=== PATIENT | female | born 1995 | race Caucasian/White ===

== ENCOUNTER 2024-07-09 16:26 | Emergency (ER) | payer MEDICAID, SELFPAY ==
[2024-07-09 16:35] VITALS: BP 115/80; PULSE 64; TEMP 37.3; O2SAT 100; BMI 23.0
--- NOTE | 2024-07-09 16:49 | ED.GENADUL1 ---
HPI HPI - General Adult General Chief complaint: Nausea/Vomiting/Diarrhea Stated complaint: WITHDRAWLING, DIZZY, DEHYDRATED Time Seen by Provider: 07/09/24 16:44 Source: patient Mode of arrival: Wheelchair History of Present Illness HPI narrative: The patient is a 28-year-old female presenting to the emergency department secondary to intractable nausea vomiting and feeling dehydrated. She states that when she moves around she feels dizzy and lightheaded. The patient is currently at [facility] which is a recovery center. She has been there for for the last 5 days. Patient stated that they tried 4 times to get a IV on her and have been unsuccessful. The patient has been receiving Phenergan injections intramuscularly without any success. Patient states that she has been using intravenous fentanyl daily for the last 4 to 5 years. Patient states her discomfort level is severe. Not being able to eat or drink makes it worse. Nothing makes it better. She has not had any blood or bile in her vomit. No black, bloody, tarry stools. No other symptoms or complaints at this time other than feeling dizzy and dehydrated. Related Data Allergies Allergy/AdvReac Type Severity Reaction Status Date / Time No Known Drug Allergies Allergy Verified 07/09/24 16:42 Opioid HPI Opioid Management Most Recent Opioid Data: No Data to Display Review of Systems ROS Narrative 10 Systems were reviewed, and unless noted in the HPI, all other systems are reviewed, unremarkable, or noncontributory. Exam Narrative Exam Narrative: Prior to examining the patient, I have washed with hospital approved and provided Antiseptic [employer] and have also applied gloves.? Prior to touching the patient, I asked for consent to examine the patient.? General: Alert and oriented, well nourished, mild distress. Eye: PERRL, EOMI, normal conjunctiva. HENT: Normocephalic, normal hearing, moist oral mucosa, no scleral icterus, no sinus tenderness. Neck: Supple, non-tender, no carotid bruits, no JVD, no lymphadenopathy. Lungs: Clear to auscultation and percussion, non-labored respiration. Heart: Normal rate, regular rhythm, no murmur, gallop or edema. Abdomen: Soft, non-tender, non-distended, normal bowel sounds, no masses. Musculoskeletal: Normal range of motion and strength, no tenderness or swelling. Skin: Skin is warm, dry and pink, no rashes or lesions. Numerous bruises of various stages of healing all over the bilateral upper extremities. Neurologic: Awake, alert, and oriented X3, CN II-XII intact. Psychiatric: Cooperative, appropriate mood and affect.? Following the conclusion of the examination, I have washed my hands thoroughly after removing examination gloves. Constitutional Vital Signs, click to edit/add: Last Vital Signs Temp 99.1 F 07/09/24 16:35 Pulse 71 07/09/24 19:14 Resp 16 07/09/24 19:14 BP 127/82 07/09/24 19:14 Pulse Ox 100 07/09/24 19:14 O2 Del Method Room Air 07/09/24 16:35 Course Reevaluation(s) Reevaluation #1: Reassessed the patient. She is currently receiving intravenous fluids. She states her nausea slightly improved. However, she is not ready to eat or drink anything just yet. Time: 17:52 Reevaluation #2: Patient is complaining of generalized low back pain. There is no evidence of any midline point tenderness. She also has a generalized headache. We are going to add Toradol 30 mg IV push to her treatment regimen. Time: 18:20 Reevaluation #3: Patient is feeling remarkably better. Her back pain and headache have resolved. The patient appears nontoxic and in no acute distress. She is tolerating oral fluids. At this time the patient can return back to the facility. Time: 18:58 Vital Signs Vital signs: Vital Signs Temperature 99.1 F 07/09/24 16:35 Pulse Rate 64 07/09/24 16:35 Respiratory Rate 16 07/09/24 16:35 Blood Pressure 115/80 07/09/24 16:35 Pulse Oximetry 100 07/09/24 16:35 Oxygen Delivery Method Room Air 07/09/24 16:35 Temperature 99.1 F 07/09/24 16:35 Pulse Rate 71 07/09/24 19:14 Respiratory Rate 16 07/09/24 19:14 Blood Pressure 127/82 07/09/24 19:14 Pulse Oximetry 100 07/09/24 19:14 Oxygen Delivery Method Room Air 07/09/24 16:35 Medical Decision Making MDM Narrative Medical decision making narrative: 28-year-old female presents from a recovery center where 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 Patient is having intractable nausea and vomiting. She is getting dehydrated and unable to hold anything down. They were unable to obtain intravenous access so they sent her to the emergency department where we initially also had difficulty and therefore I placed a left external jugular vein catheter. Patient was able to received intravenous hydration and intravenous antiemetic which significantly improved her symptoms and she was able to tolerate a p.o. challenge. Patient was then stable to go back to the recovery center where she can continue her journey to recovery. Differential Diagnosis Differential Diagnosis: Dehydration, electrolyte abnormality, acute renal failure, gastroenteritis Medical Records Medical records reviewed: Yes I reviewed the patient's medical records Lab Data Lab results reviewed: Yes I reviewed the patient's lab results Lab results narrative: Electrolyte and kidney are normal. Labs: Lab Results 07/09/24 Range/Units 17:04 Sodium 140 (136-145) mmol/L Potassium 4.0 (3.5-5.1) mmol/L Chloride 105 (98-107) mmol/L Carbon Dioxide 23.6 (21.0-32.0) mmol/L Anion Gap 15.4 BUN 16.0 (7.0-18.0) mg/dL Creatinine 0.88 (0.55-1.02) mg/dL Est GFR ( Amer) >60 (>=60 mL/min/1.73m^2) Est GFR (Non-Af Amer) >60 (>=60 mL/min/1.73m^2) BUN/Creatinine Ratio 18.2 Glucose 88 (74-106) mg/dL Calcium 9.0 (8.5-10.1) mg/dL Discharge Plan Discharge Chief Complaint: Nausea/Vomiting/Diarrhea Clinical Impression: Dehydration, Withdrawal symptoms, drug or narcotic Patient Disposition: Home, Self-Care Time of Disposition Decision: 18:59 Condition: Good Mode of Transportation: Private Vehicle Print Language: Burmese Instructions: Dehydration (ED), Polysubstance Use Disorder (ED) Additional Instructions: Please try to stay diligent about increasing her fluids. I am proud of you for your recovery efforts. Keep working and moving forward. Referrals: Physician,Non-Staff, [Primary Care Provider] - 1 week Discharge Date/Time: 07/09/24 19:52 Procedures ED Procedure Instructions Procedures Procedures: Patient has some vascular insufficiency likely from her prolonged IV drug use. She does not use neck veins. 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 She was cleaned with ChloraPrep. I used an 20-gauge 1 inch intervenous catheter to cannulate her left external jugular vein. It was secured in place with Tegaderm.
[2024-07-09] MEDS: ONDANSETRON PF 4 MG/2 ML VIAL IV (17:15)
[2024-07-09] MEDS: 0.9 % SODIUM CHLORIDE 1,000 ML 1000 ML IV (17:15)
[2024-07-09] MEDS: PANTOPRAZOLE SODIUM 40 MG VIAL IV (17:15)
[2024-07-09 17:27] LABS: Anion Gap 15.4; BUN Creatinine Ratio 18.2; Carbon Dioxide 23.6 mmol/L (21.0-32.0); Chloride 105 mmol/L (98-107); Estimated GFR (African America >60 (>=60 mL/min/1.73m^2); Estimated GFR (Non-African Ame >60 (>=60 mL/min/1.73m^2); Glucose 88 mg/dL (74-106); Sodium 140 mmol/L (136-145)
[2024-07-09] MEDS: KETOROLAC TROMETHAMINE 30 MG/ML VIAL IVP (18:32)
[2024-07-09 19:14] VITALS: BP 127/82; PULSE 71; O2SAT 100
== END 2024-07-09 19:52 | disposition home or self-care (01) ==
PROVIDERS: Emergency Provider Emergency Medicine
DX: E86.0 Dehydration (principal); M54.50 Low back pain, unspecified; R51.9 Headache, unspecified; F11.13 Opioid abuse with withdrawal
CPT/HCPCS: 36415; 80048; 96361; 96374; 96375; 99284; J1885; J2405